=== PATIENT | male | born 1960 | race Caucasian/White ===

== ENCOUNTER 2017-06-12 19:25 | Inpatient (IN) | payer MEDICAID ==
[~2017-06-12] VITALS: Ht 170.2 cm; Wt 59.1 kg
[~2017-06-12 19:25] MED LIST: AML5T GT; BENA1POW XX
[2017-06-12 20:09] LABS: Basophils # (auto) 0 uL; Basophils % (auto) 0.6 % (0.0-2.0); Eosinophils # (auto) 0 uL; Eosinophils % (auto) 0.2 % (0.0-7.0); Hematocrit 41.7 % (41.0-53.0); Lymphocytes # (auto) 0.5 uL; Lymphocytes % (auto) 7.7 % (10.0-50.0); Mean Corpuscular Hemoglobin 33.8 pg (28.0-32.0); Mean Corpuscular Hgb Conc. 33.5 g/dL (32.0-36.0); Mean Corpuscular Volume 100.7 fL (80.0-100.0); Monocytes # (auto) 0.6 uL; Monocytes % (auto) 8.3 % (0.0-12.0); Neutrophils # (auto) 5.5 uL; Neutrophils % (auto) 83.2 % (37.0-80.0); Nucleated Red Blood Cells % 0.1 %; Platelet Count (auto) 173 10^3/uL (140-450); Red Blood Cells 4.14 10^6/uL (4.5-5.90); Red Cell Distribution Width 12.5 % (11.8-14.3); White Blood Cell 6.7 10^3/uL (4.4-10.8)
[2017-06-12 20:30] LABS: Albumin 3.1 g/dL (3.4-5.0); Anion Gap 19 (5-15); Blood Urea Nitrogen 27 mg/dL (7-18); Calcium 9.3 mg/dL (8.5-10.1); Carbon Dioxide 31 mmol/L (21-32); Chloride 89 mmol/L (98-107); Glucose 187 mg/dL (74-106); Sodium 139 mmol/L (136-145)
[2017-06-12 20:31] LABS: INR 0.92 (0.9-1.15); Partial Thromboplastin Time 31.8 sec (22.64-33.71)
[2017-06-12 20:32] LABS: BUN/Creatinine Ratio 12.7; GFR African American 42 mL/min; GFR Non-African American 35 mL/min
[2017-06-12 20:48] LABS: Alanine Aminotransferase 42 U/L (16-61); Alkaline Phosphatase 77 U/L (45-117); Aspartate Aminotransferase 52 U/L (15-37); Bilirubin, Total 0.5 mg/dL (0.2-1.0); Total Protein 7.6 g/dL (6.4-8.2)
[2017-06-12 20:50] LABS: Potassium 2.9 mmol/L (3.5-5.1)
[2017-06-12] MEDS ORDERED: POTASSIUM CHL 20 Meq TABLET PO ONE (22:30)
[2017-06-12] MEDS ORDERED: SODIUM CHLORIDE 0.9% 500 ML IV ONE (23:15)
[2017-06-13] MEDS ORDERED: MORPHINE SULFATE 8mg/ml INJ SDV IV PRN (02:30)
[2017-06-13] MEDS ORDERED: ONDANSETRON HCL 4 MG/2 ML VIAL IV PRN (02:30)
[2017-06-13] MEDS ORDERED: HYDROcodone-ACET 5/325MG TAB PO PRN (02:30)
[2017-06-13] MEDS ORDERED: NITROGLYCERIN 0.4 MG SL TAB SL PRN (02:30)
[2017-06-13] MEDS ORDERED: cloNIDine HCL 0.1 MG TAB PO PRN (02:30)
[2017-06-13] MEDS ORDERED: DEXTROSE (50%) 50ML SYRG IV PRN (02:30)
[2017-06-13] MEDS: MAGNESIUM SULFATE 1GM/100ML 100 ML IV SCH ×2 (03:44→04:44)
[2017-06-13] MEDS: InsuLIN REG 1unit/0.01ml Soln (100units/ml) SC SCH ×3 (06:29→18:17)
[2017-06-13] MEDS: ACCU-CHEK COMFORT CURVE STRIP VI SCH ×3 (06:29→17:35)
[2017-06-13] MEDS ORDERED: SODIUM CHLORIDE 0.9% 1,000 ML IV ONE (08:00)
[2017-06-13 10:25] LABS: Urine Bacteria FEW /hpf (None Seen); Urine Blood Negative /uL (Negative); Urine Hyaline Cast FEW /lpf (0 - 2); Urine Mucus FEW (None Seen); Urine Specific Gravity 1.016 (1.001-1.035); Urine WBC 3 /hpf (0 - 3)
[2017-06-13 10:45] LABS: Protein, Urine 50.1 mg/dL (0.0-11.9)
[2017-06-13 10:52] LABS: Alcohol, Urine < 3.0 mg/dL (0-5); Amphetamine Screen, Urine NEGATIVE (NEGATIVE); Barbiturate Scree,Urine NEGATIVE (NEGATIVE); Benzodiazephine Screen, Urine NEGATIVE (NEGATIVE); Cannabinoid Screen, Urine NEGATIVE (NEGATIVE); Cocaine Screen, Urine NEGATIVE (NEGATIVE); Opiate Scree,Urine NEGATIVE (NEGATIVE); Phencyclidine Screen, Urine NEGATIVE (NEGATIVE)
[2017-06-13] MEDS: ASPirin 81 mg TAB PO SCH (11:01)
[2017-06-13] MEDS: ENOXAPARIN SOD 30 MG/0.3 ML SYRINGE SC SCH (11:01)
[2017-06-13] MEDS: PANTOPRAZOLE 40 MG TAB PO SCH (11:01)
[2017-06-13] MEDS: amLODIPine BESYLATE 5 MG TAB PO SCH (11:02)
[2017-06-13] MEDS ORDERED: ATEN25TA GT (14:08)
[2017-06-13 14:31] VITALS: BP 136/80
[2017-06-13] MEDS ORDERED: POTASSIUM CHL 20 Meq TABLET PO ONE (16:00)
[2017-06-13] MEDS: SODIUM CHLORIDE 0.9% 1,000 ML IV SCH (16:22)
[2017-06-13 16:23] VITALS: BP 136/80
[2017-06-13 22:00] VITALS: BP 122/76
[2017-06-13] MEDS: ACETAMINOPHEN 325 MG TAB PO PRN (22:46)
[2017-06-14] MEDS: SODIUM CHLORIDE 0.9% 1,000 ML IV SCH ×3 (00:03→19:36)
[2017-06-14] MEDS: ACCU-CHEK COMFORT CURVE STRIP VI SCH ×4 (00:23→17:58)
[2017-06-14 05:00] VITALS: BP 148/85
[2017-06-14] MEDS: ACETAMINOPHEN 325 MG TAB PO PRN ×2 (05:16→21:57)
[2017-06-14] MEDS: InsuLIN REG 1unit/0.01ml Soln (100units/ml) SC SCH ×5 (05:47→17:58)
[2017-06-14 06:49] LABS: Basophils # (auto) 0.1 uL; Basophils % (auto) 1.1 % (0.0-2.0); Eosinophils # (auto) 0.1 uL; Eosinophils % (auto) 2.1 % (0.0-7.0); Hemoglobin 11.7 g/dL (13.5-17.5); Monocytes # (auto) 0.6 uL; Neutrophils # (auto) 2.5 uL
[2017-06-14 06:52] LABS: Hematocrit 34.5 % (41.0-53.0); Lymphocytes # (auto) 1.7 uL; Lymphocytes % (auto) 34.1 % (10.0-50.0); Mean Corpuscular Hemoglobin 34.2 pg (28.0-32.0); Mean Corpuscular Volume 100.5 fL (80.0-100.0); Monocytes % (auto) 12.5 % (0.0-12.0); Neutrophils % (auto) 50.2 % (37.0-80.0); Platelet Count (auto) 124 10^3/uL (140-450); Red Blood Cells 3.43 10^6/uL (4.5-5.90); Red Cell Distribution Width 12.6 % (11.8-14.3)
[2017-06-14 07:24] LABS: Albumin 2.5 g/dL (3.4-5.0); Calcium 7.8 mg/dL (8.5-10.1); Magnesium 1.6 mg/dL (1.6-2.6)
[2017-06-14 07:27] LABS: Bilirubin, Total 0.9 mg/dL (0.2-1.0)
[2017-06-14] MEDS ORDERED: ADENOSINE 49 MG in GIVE UN-DILUTED 0 ML IV STA (08:28)
[2017-06-14 09:00] VITALS: BP 144/87
[2017-06-14] MEDS ORDERED: SPIRONOLACTONE 25 MG TAB PO ONE (09:15)
[2017-06-14 09:18] VITALS: BP 163/96
[2017-06-14] MEDS ORDERED: POTASSIUM CHL 20 Meq TABLET PO ONE (09:45)
[2017-06-14] MEDS: PANTOPRAZOLE 40 MG TAB PO SCH (10:45)
[2017-06-14] MEDS: ASPirin 81 mg TAB PO SCH (10:45)
[2017-06-14] MEDS: amLODIPine BESYLATE 5 MG TAB PO SCH (10:45)
[2017-06-14] MEDS: MAGNESIUM SULFATE 1GM/100ML 100 ML IV SCH ×2 (10:46→13:36)
[2017-06-14] MEDS: ENOXAPARIN SOD 30 MG/0.3 ML SYRINGE SC SCH (10:46)
[2017-06-14] MEDS ORDERED: traMADol HCL 50 MG TAB PO ONE (12:00)
[2017-06-14 13:00] VITALS: BP 119/82
[2017-06-14 16:50] VITALS: BP 146/93
[2017-06-14] MEDS: traMADol HCL 50 MG TAB PO PRN (19:37)
[2017-06-14 21:30] VITALS: BP 144/86
[2017-06-15] MEDS: ACCU-CHEK COMFORT CURVE STRIP VI SCH ×5 (00:27→23:47)
[2017-06-15] MEDS: InsuLIN REG 1unit/0.01ml Soln (100units/ml) SC SCH ×5 (00:33→23:47)
[2017-06-15] MEDS: traMADol HCL 50 MG TAB PO PRN ×4 (04:18→22:17)
[2017-06-15 04:53] VITALS: BP 130/82
[2017-06-15] MEDS: SODIUM CHLORIDE 0.9% 1,000 ML IV SCH (06:35)
[2017-06-15 07:29] LABS: Eosinophils # (auto) 0.1 uL; Mean Corpuscular Hgb Conc. 34.1 g/dL (32.0-36.0); Monocytes # (auto) 0.8 uL; White Blood Cell 7.1 10^3/uL (4.4-10.8)
[2017-06-15 07:33] LABS: Basophils # (auto) 0 uL; Basophils % (auto) 0.6 % (0.0-2.0); Eosinophils % (auto) 1.3 % (0.0-7.0); Hematocrit 35.6 % (41.0-53.0); Hemoglobin 12.1 g/dL (13.5-17.5); Lymphocytes # (auto) 1.7 uL; Lymphocytes % (auto) 23.4 % (10.0-50.0); Mean Corpuscular Hemoglobin 33.9 pg (28.0-32.0); Mean Corpuscular Volume 99.7 fL (80.0-100.0); Monocytes % (auto) 10.7 % (0.0-12.0); Neutrophils # (auto) 4.6 uL; Platelet Count (auto) 131 10^3/uL (140-450); Red Blood Cells 3.57 10^6/uL (4.5-5.90); Red Cell Distribution Width 12.3 % (11.8-14.3)
[2017-06-15 07:43] LABS: BUN/Creatinine Ratio 9.8; Calcium 7.8 mg/dL (8.5-10.1); Potassium 3.1 mmol/L (3.5-5.1)
[2017-06-15] MEDS ORDERED: POTASSIUM CHL 20 Meq TABLET PO ONE (08:30)
[2017-06-15 08:31] VITALS: BP 152/81
[2017-06-15] MEDS ORDERED: BENAZEPRIL HCL 10 MG TAB PO SCH ×2 (10:00)
[2017-06-15] MEDS ORDERED: ASPirin-EC 81 mg tab PO SCH (10:00)
[2017-06-15] MEDS ORDERED: ASPirin 81 mg TAB PO SCH (10:00)
[2017-06-15] MEDS: PANTOPRAZOLE 40 MG TAB PO SCH (10:08)
[2017-06-15] MEDS: amLODIPine BESYLATE 5 MG TAB PO SCH (10:08)
[2017-06-15] MEDS: ENOXAPARIN SOD 30 MG/0.3 ML SYRINGE SC SCH (10:09)
[2017-06-15] MEDS ORDERED: GOLYTELY 4L KIT PO ONE (12:30)
[2017-06-15] MEDS ORDERED: BENAZEPRIL HCL 10 MG TAB PO ONE (12:45)
[2017-06-15 13:00] VITALS: BP 154/92
[2017-06-15 17:00] VITALS: BP 133/82
[2017-06-15 22:00] VITALS: BP 119/80
[2017-06-16 05:00] VITALS: BP 123/85
[2017-06-16] MEDS: InsuLIN REG 1unit/0.01ml Soln (100units/ml) SC SCH ×2 (05:43→12:00)
[2017-06-16] MEDS: ACCU-CHEK COMFORT CURVE STRIP VI SCH ×2 (05:43→12:06)
[2017-06-16] MEDS ORDERED: GOLYTELY 4L KIT PO ONE (06:00)
[2017-06-16 06:56] LABS: Eosinophils # (auto) 0.1 uL; Lymphocytes # (auto) 1.2 uL; Monocytes # (auto) 0.4 uL; Platelet Count (auto) 168 10^3/uL (140-450)
[2017-06-16 06:59] LABS: Basophils # (auto) 0 uL; Basophils % (auto) 0.8 % (0.0-2.0); Eosinophils % (auto) 1.6 % (0.0-7.0); Hematocrit 42.4 % (41.0-53.0); Hemoglobin 14.4 g/dL (13.5-17.5); Lymphocytes % (auto) 21.1 % (10.0-50.0); Mean Corpuscular Hemoglobin 34.2 pg (28.0-32.0); Mean Corpuscular Volume 100.5 fL (80.0-100.0); Monocytes % (auto) 7.3 % (0.0-12.0); Neutrophils % (auto) 69.2 % (37.0-80.0); Nucleated Red Blood Cells % 0.2 %; Red Blood Cells 4.22 10^6/uL (4.5-5.90); Red Cell Distribution Width 12.5 % (11.8-14.3); White Blood Cell 5.8 10^3/uL (4.4-10.8)
[2017-06-16 07:00] LABS: BUN/Creatinine Ratio 4.6; Calcium 8.6 mg/dL (8.5-10.1)
[2017-06-16] MEDS ORDERED: FLUMAZENIL 0.1 MG/ML INJ 10ML MDV IV ONE (08:28)
[2017-06-16] MEDS ORDERED: LIDOCAINE VISCOUS 2% 15ML UD ONE (08:28)
[2017-06-16] MEDS ORDERED: diphenhdrAMINE HCL 50 MG/1 ML VL ONE (08:28)
[2017-06-16] MEDS ORDERED: NALOXONE HCL 0.4 MG/ML VIAL ONE (08:28)
[2017-06-16] MEDS: PANTOPRAZOLE 40 MG TAB PO SCH (08:36)
[2017-06-16] MEDS: ENOXAPARIN SOD 30 MG/0.3 ML SYRINGE SC SCH (08:36)
[2017-06-16 09:00] VITALS: BP 155/92
[2017-06-16] MEDS: fentaNYL CITRATE 100 MCG/2 ML VL ONE ×4 (09:14→09:40)
[2017-06-16] MEDS: MIDAZOLAM HCL 5 MG/ML-1ML VIAL ONE ×3 (09:14→09:35)
[2017-06-16] MEDS ORDERED: MIDAZOLAM HCL 5 MG/ML-1ML VIAL ONE (09:38)
[2017-06-16] MEDS ORDERED: BENAZEPRIL HCL 10 MG TAB PO SCH (10:00)
[2017-06-16] MEDS ORDERED: PANTOPRAZOLE 40 MG TAB PO SCH (10:00)
[2017-06-16] MEDS: amLODIPine BESYLATE 5 MG TAB PO SCH (11:57)
[2017-06-16] MEDS ORDERED: PANT40T PO (12:04)
[2017-06-16 13:00] VITALS: BP 156/102
[2017-06-16 13:28] VITALS: BP 156/102
[2017-06-16 13:39] VITALS: BP 156/102
== END 2017-06-16 15:30 | disposition home or self-care (01) | DRG 241 ==
LOC: ER 19:25 → TELE 19:26 → TELE-CENTR 06-13 13:31
PROVIDERS: ADMIT Nurse Practitioner; ATTEND Internal Medicine
PROC: 0DBM8ZZ Excision of Descending Colon, Via Natural or Artificial Opening Endoscopic (ICD-10-PCS; 2017-06-16)
PROC: 0DBM8ZX Excision of Descending Colon, Via Natural or Artificial Opening Endoscopic, Diagnostic (ICD-10-PCS; 2017-06-16)
PROC: 0DBE8ZX Excision of Large Intestine, Via Natural or Artificial Opening Endoscopic, Diagnostic (ICD-10-PCS; 2017-06-16)
PROC: 0D748DZ Dilation of Esophagogastric Junction with Intraluminal Device, Via Natural or Artificial Opening Endoscopic (ICD-10-PCS; 2017-06-16)
PROC: 0DB98ZX Excision of Duodenum, Via Natural or Artificial Opening Endoscopic, Diagnostic (ICD-10-PCS; principal; 2017-06-16 09:11)
PROC: 0DB68ZX Excision of Stomach, Via Natural or Artificial Opening Endoscopic, Diagnostic (ICD-10-PCS; 2017-06-16 09:11)
DX: K29.70 Gastritis, unspecified, without bleeding (principal); N17.0 Acute kidney failure with tubular necrosis; E43 Unspecified severe protein-calorie malnutrition; K57.31 Diverticulosis of large intestine without perforation or abscess with bleeding; E11.65 Type 2 diabetes mellitus with hyperglycemia; E83.42 Hypomagnesemia; K22.2 Esophageal obstruction; I25.119 Atherosclerotic heart disease of native coronary artery with unspecified angina pectoris; K64.8 Other hemorrhoids; K44.9 Diaphragmatic hernia without obstruction or gangrene; K63.5 Polyp of colon; D64.9 Anemia, unspecified; K29.80 Duodenitis without bleeding; E86.0 Dehydration; E87.6 Hypokalemia; I10 Essential (primary) hypertension; F17.210 Nicotine dependence, cigarettes, uncomplicated; Z79.899 Other long term (current) drug therapy; Z82.49 Family history of ischemic heart disease and other diseases of the circulatory system; Z68.20 Body mass index [BMI] 20.0-20.9, adult
CPT/HCPCS: 36415; 43213; 71045; 74176; 76775; 80048; 80053; 80061; 80307; 81001; 82570; 82705; 82784; 82962; 83036; 83516; 83735; 83880; 84156; 84443; 84484; 85025; 85048; 85379; 85610; 85730; 86255; 87045; 87493; 87899; 93005; 93017; 93306; 96361; 96372; 96374; J0153; J1815; J2250; J2405

== ENCOUNTER 2020-09-14 01:00 | Emergency (ER) | payer MEDICAID ==
[~2020-09-14] VITALS: Ht 177.8 cm; Wt 95.3 kg
[~2020-09-14 01:00] MED LIST changes: -BENA1POW XX; +BENAPOW2 XX; +PANT40T PO
[2020-09-14] MEDS ORDERED: SODIUM CHLORIDE 0.9% 3,000 ML IV ONE (01:30)
[2020-09-14 01:55] LABS: Basophils # (auto) 0.1 10 ^3/uL (0-0.2); Basophils % (auto) 1.2 % (0.0-2.0); Eosinophils # (auto) 0.5 10 ^3/uL (0-0.8); Eosinophils % (auto) 4.3 % (0.0-7.0); Hematocrit 46.7 % (41.0-53.0); Hemoglobin 16.2 g/dL (13.5-17.5); Lymphocytes # (auto) 2.6 10 ^3/uL (0.4-5.4); Lymphocytes % (auto) 23.5 % (10.0-50.0); Mean Corpuscular Hemoglobin 33.5 pg (28.0-32.0); Mean Corpuscular Hgb Conc. 34.8 g/dL (32.0-36.0); Mean Corpuscular Volume 96.3 fL (80.0-100.0); Monocytes # (auto) 0.6 10 ^3/uL (0-1.3); Monocytes % (auto) 5.5 % (0.0-12.0); Neutrophils # (auto) 7.2 10 ^3/uL (1.6-8.6); Neutrophils % (auto) 65.5 % (37.0-80.0); Nucleated Red Blood Cells % 0.1 %; Red Blood Cells 4.85 10^6/uL (4.5-5.90); Red Cell Distribution Width 13.4 % (11.8-14.3); White Blood Cell 10.9 10^3/uL (4.4-10.8)
[2020-09-14 02:06] LABS: Albumin 3.4 g/dL (3.4-5.0); Calcium 8.7 mg/dL (8.5-10.1); Potassium 3.5 mmol/L (3.5-5.1)
[2020-09-14 02:19] LABS: Bilirubin, Total 0.2 mg/dL (0.2-1.0); Total Protein 7.5 g/dL (6.4-8.2)
[2020-09-14] MEDS ORDERED: SODIUM CHLORIDE 0.9% 2,000 ML IV ONE (02:45)
[2020-09-14] MEDS ORDERED: ONDANSETRON HCL 4 MG/2 ML VIAL IV ONE (03:45)
[2020-09-14] MEDS ORDERED: MORPHINE SULFATE 10 MG/ML INJ 1ML SDV IV ONE (03:45)
[2020-09-14 03:51] LABS: Amphetamine Screen, Urine NEGATIVE (NEGATIVE); Barbiturate Scree,Urine NEGATIVE (NEGATIVE); Benzodiazephine Screen, Urine NEGATIVE (NEGATIVE); Cannabinoid Screen, Urine NEGATIVE (NEGATIVE); Cocaine Screen, Urine NEGATIVE (NEGATIVE); Opiate Scree,Urine NEGATIVE (NEGATIVE)
[2020-09-14 04:00] LABS: Phencyclidine Screen, Urine NEGATIVE (NEGATIVE)
[2020-09-14 04:09] LABS: Urine Bacteria NONE SEEN /hpf (None Seen); Urine Blood Negative /uL (Negative); Urine Hyaline Cast FEW /lpf (0 - 2); Urine Specific Gravity 1.009 (1.001-1.035); Urine WBC 2 /hpf (0 - 3)
[2020-09-14 05:30] VITALS: BP 131/81
== END 2020-09-14 05:46 | disposition home or self-care (01) ==
LOC: EDBD 01:00 → ER 01:03
DX: S00.03XA Contusion of scalp, initial encounter (principal); E11.9 Type 2 diabetes mellitus without complications; I10 Essential (primary) hypertension; F17.210 Nicotine dependence, cigarettes, uncomplicated; Z88.6 Allergy status to analgesic agent; W18.39XA Other fall on same level, initial encounter; Y93.89 Activity, other specified; Y92.89 Other specified places as the place of occurrence of the external cause; Y99.8 Other external cause status
CPT/HCPCS: 36415; 70450; 72125; 80053; 80307; 80320; 81001; 85025; 93005; 96360; 96361; 99285; J7030